=== PATIENT | female | born 1960 | race Caucasian/White ===

== ENCOUNTER 2022-04-30 11:34 | Emergency (ER) | payer OTHER, SELFPAY ==
[2022-04-30 11:40] VITALS: BP 122/62; PULSE 78; RESP 20; TEMP 36.3; O2SAT 98; BMI 21.1
--- NOTE | 2022-04-30 12:31 | ED_ITS ---
HPI - General Adult General Chief complaint: Abdominal Pain Stated complaint: Abdominal pain Time Seen by Provider: 04/30/22 11:36 History of Present Illness HPI narrative: 62-year-old woman accompanied by her with concern of being excessively gassy. She does also have some left upper abdominal pains that come and go and may coincide with a stabbing pain that sometimes feels numb in her mid back. This pain in the back especially is not a new pain has been going on for years intermittently. Does note a history of irritable bowel syndrome. Numerous allergies to food and medications. Sensitive to various foods/additives. Thinking back she feels that this most recent bout of dis-ease began about 3 weeks ago after ingesting a small piece of steak. She says she knows right away when she is going to react to it. Apparently can only tolerate grass fed beef. This also coincided with quitting smoking or least transitioning to a vape pen. She is historically tried spearmint flavor with no difficulty but this time she also thought she would try a flavored 1. Head marked increase in nausea and diarrheal stools which admittedly has settled down now. Moreso loose stools. Outside of the last few weeks would be going 3 to 5 times a day anyway. Quit most distressing as the degree of flatulence that she is having now. And there is discomfort in the left abdomen. Does have a history of diverticulitis, numerous bouts admittedly this feels nothing like it. There was the thought that perhaps she perforated somewhere along the way and is going to be in trouble soon. She has not had any melena or hematochezia. Again nauseated but not vomiting. No fever. No dysuria frequency urgency. Has not been vaccinated for COVID. is suspected to have had COVID early in the pandemic. He also has been experiencing bouts of nausea waves of nausea that seem out of the ordinary maybe for as long as 6 months. Again [place] also with waves of nausea intermittently. Later noting how her hands and feet will cramp up periodically; this does not sound to be a new thing. Past medical otherwise of number of abdominal surgeries. She has had cholecystectomy and thinks that has continued to have some difficulty after that with digestion. Has had diverticulitis numerous times. I believe 1 of these episodes prompted a partial colectomy. Has had regular screening colonoscopies. Related Data Home Medications Medication Instructions Recorded Confirmed No Known Home Medications 04/30/22 04/30/22 Allergies Allergy/AdvReac Type Severity Reaction Status Date / Time acetaminophen [From Tylenol] Allergy Verified 04/30/22 12:08 azithromycin Allergy Anaphylaxis Verified 04/30/22 12:08 cranberry Allergy Verified 04/30/22 12:08 diphenhydramine Allergy Rash Verified 04/30/22 12:08 [From Benadryl] fluconazole Allergy Rash Verified 04/30/22 12:08 ibuprofen Allergy Hives Verified 04/30/22 12:08 indomethacin [From Indocin] Allergy Verified 04/30/22 12:08 lactose Allergy Verified 04/30/22 12:08 latex Allergy Verified 04/30/22 11:46 levofloxacin [From Levaquin] Allergy Anaphylaxis Verified 04/30/22 11:46 melon Allergy Verified 04/30/22 12:08 niacin Allergy Anaphylaxis Verified 04/30/22 12:08 nickel Allergy Verified 04/30/22 12:08 peanut Allergy Verified 04/30/22 11:46 Quinolones Allergy angioedema Verified 04/30/22 12:08 tetracycline Allergy Anaphylaxis Verified 04/30/22 12:08 titanium Allergy Verified 04/30/22 11:46 watermelon Allergy Diarrhea Verified 04/30/22 12:08 soy copeland Allergy Uncoded 04/30/22 11:46 Review of Systems Status of ROS: Reports: 10 or more systems reviewed and unremarkable except as noted in History and below [facility] Social History Smoking Status: Former smoker Do you use any of these nicotine containing products: None Second hand tobacco smoke exposure: No How often do you have a drink containing alcohol: never AUDIT-C Alcohol total score: 0 Non-prescribed substance use: denies use Exam Narrative: Exam Narrative: Pleasant. Blunt in conversation style indirect. Does not appear to be any particular distress. Cranial nerves 2-12 intact. She is breathing easily. Lungs are with some diffuse congestion noted on expiration. No wheeze. Heart with regular rate and rhythm Abdomen is soft protuberant. Diminished bowel sounds but present. Postoperative scars are evident. Mid left abdomen probably most localized area of discomfort and to deep palpation though. No peritoneal signs are present. Notes a little sensation of numbness along the left mid paracervical musculature. Not tender. Extremities well perfused without edema. Skin warm and dry without rash. Const: Vital Signs, click to edit/add: Vital Signs - 24 hr 04/30/22 11:40 Temperature 97.4 F L Pulse Rate [Pulse Oximeter] 78 Respiratory Rate 20 Blood Pressure [Ri ght Upper Arm] 122/62 Pulse Oximetry 98 Oxygen Delivery Me thod Room Air Documenting provider has reviewed patient's vital signs: yes Course Vital Signs Vital signs: Initial Vital Signs Temperature 97.4 F L 04/30/22 11:40 Temperature Source Temporal Artery Scan 04/30/22 11:40 Pulse Rate 78 04/30/22 11:40 Respiratory Rate 20 04/30/22 11:40 Blood Pressure 122/62 04/30/22 11:40 Blood Pressure Mean 82 04/30/22 11:40 Pulse Oximetry 98 04/30/22 11:40 Oxygen Delivery Method 04/30/22 11:40 Vital Signs Temperature 97.4 F L 04/30/22 11:40 Pulse Rate 78 04/30/22 11:40 Respiratory Rate 20 04/30/22 11:40 Blood Pressure 122/62 04/30/22 11:40 Pulse Oximetry 98 04/30/22 11:40 Oxygen Delivery Method 04/30/22 11:40 Temperature 97.4 F L 04/30/22 11:40 Pulse Rate 78 04/30/22 11:40 Respiratory Rate 20 04/30/22 11:40 Blood Pressure 122/62 04/30/22 11:40 Pulse Oximetry 98 04/30/22 11:40 Oxygen Delivery Method 04/30/22 11:40 Medical Decision Making MDM Narrative Medical decision making narrative: I suspect prolonged symptoms after food intolerance as described or some other viral insult in someone prone to chronic bowel irritability. I think diverticulitis less likely given the absence of acute abdomen over this and duration of symptoms. We discussed emergent versus subacute as pertaining to the emergency department as well as primary care evaluation. In process of shared decision making decided screening labs All labs normal. Urinalysis only slightly concentrated. No indication of infection. It would not appear that further emergent imaging is necessary at this time. Still demonstrating a little discomfort in left mid abdomen. Transitions without apparent pain. Further conversation does reveal increased stress at home particularly with her . Last 3 months in particular have been rather difficult. I wonder if this may be adding to abdominal symptoms. See patient discharge plan Lab Data Lab results reviewed: Yes I reviewed the patient's lab results Labs: Lab Results 04/30/22 04/30/22 04/30/22 Range/Units 12:56 12:56 13:24 WBC 5.64 (4.50-11.00) K/uL RBC 4.58 (4.00-5.20) m/uL Hgb 13.0 (12.0-16.0) gm/dL Hct 40.1 (33.0-51.0) % MCV 88 (80-100) fL MCH 28 (26-34) pg MCHC 32 (32-36) gm/dL RDW Coeff of Helder 13.0 (11.5-15.5) % Plt Count 313 (140-440) K/uL Neut % (Auto) 54.2 (42.0-72.0) % Lymph % (Auto) 31.4 (20-44) % [place] % (Auto) 7.8 (0.0-11.0) % Eos % (Auto) 5.9 (0.0-7.0) % Baso % (Auto) 0.7 (0.0-3.0) % Neut # (Auto) 3.06 (1.7-7.0) K/uL Lymph # (Auto) 1.77 (0.90-2.90) K/uL [place] # (Auto) 0.40 (0.00-0.90) K/UL Eos # (Auto) 0.33 (0.00-0.50) K/uL Baso # (Auto) 0.04 (0.00-0.30) K/uL Sodium 138 (135-149) mmol/L Potassium 4.3 (3.6-5.1) mmol/L Chloride 104 (96-114) mmol/L Carbon Dioxide 31 (20-32) mmol/L BUN 16 (7-30) mg/dL Creatinine 0.6 (0.5-1.5) mg/dL Estimated Creat Clear 40.82 Estimated GFR 100 ml/min Glucose 99 (60-115) mg/dL Calcium 8.8 (8.4-10.6) mg/dL Magnesium 2.1 (1.5-2.6) mg/dL Total Bilirubin 0.3 (0.1-1.5) mg/dL Direct Bilirubin 0.2 (0.0-0.5) mg/dL AST 24 (12-35) U/L ALT 26 (4-35) U/L Alkaline Phosphatase 64 (40-150) U/L C-Reactive Protein 0.5 (0.5-1.0) mg/dL Total Protein 7.0 (6.0-8.3) g/dL Albumin 4.1 (3.3-5.0) g/dL Urine Color Yellow (Yellow) Urine Appearance Clear (Clear) Urine pH 6.5 (5.0-8.5) Ur Specific [place] 1.025 (1.000-1.030) Urine Protein Negative (Negative) Urine Glucose (UA) Negative (Negative) Urine Ketones Negative (Negative) Urine Blood Negative (Negative) Urine Nitrite Negative (Negative) Urine Bilirubin Negative (Negative) Urine Urobilinogen 0.2 (0.2-1.0) Ur Leukocyte Esterase Negative (Negative) Urine RBC 0-2 (0-2) Urine WBC 0-2 (0-5) Ur Squamous Epith Cells Few (None-Few) Urine Bacteria None (None) Discharge Plan Discharge Clinical Impression: Abdominal pain, Irritable bowel Patient Disposition: Home w/ Parent or Adult Condition: Stable Additional Instructions: It appears as if you are out of balance. I would continue to focus on hydration with simple water at this point. You might consider twice daily supplementation with probiotic of your choice and/or something like Damaso Bio-Gest digestive enzymes for up to 4 weeks to see if this makes a difference. I do think it is worth circling back around with Gastroenterology to discuss your difficulties since your cholecystectomy as well as general irritable bowel symptoms. Do begin keeping it diet diary of everything you ingest; all fluid intake including water, any supplements and then how you feel, your symptoms day-to-day. Can take this then to follow up with primary care provider with referral to acreage reporter. Congratulations on quitting smoking and alcohol cessation. As discussed, you might be uncovering other symptoms that may have not noticed before. At some point might consider consultation with complimentary/alternative/Naturopathic medicine especially as I think you have particular interest in this. Otherwise return for marked increase in persistent pain, repeated vomiting, associated fever. Prescriptions: No Action No Known Home Medications Follow Up/Referrals: Josias Moran MD [Primary Care Provider] - Stand Alone Forms: [address] Info Instructions
[2022-04-30] MEDS: ONDANSETRON ODT 4 MG TAB PO (12:59)
[2022-04-30 13:02] LABS: Basophils Absolute Auto 0.04 K/uL (0.00-0.30); Basophils Percent Auto 0.7 % (0.0-3.0); Eosinophils Absolute Auto 0.33 K/uL (0.00-0.50); Eosinophils Percent Auto 5.9 % (0.0-7.0); Hematocrit 40.1 % (33.0-51.0); Lymphocytes Absolute Auto 1.77 K/uL (0.90-2.90); Lymphocytes Percent Auto 31.4 % (20-44); Mean Corpuscular HGB Conc 32 gm/dL (32-36); Mean Corpuscular Hemoglobin 28 pg (26-34); Mean Corpuscular Volume 88 fL (80-100); Monocytes Percent Auto 7.8 % (0.0-11.0); Neutrophils Absolute Auto 3.06 K/uL (1.7-7.0); Neutrophils Percent Auto 54.2 % (42.0-72.0); Platelet Count* 313 K/uL (140-440); Red Blood Count 4.58 m/uL (4.00-5.20); White Blood Count* 5.64 K/uL (4.50-11.00)
[2022-04-30 13:05] LABS: Slide Review Reflex No
[2022-04-30 13:16] LABS: Albumin* 4.1 g/dL (3.3-5.0); Chloride* 104 mmol/L (96-114)
[2022-04-30 13:17] LABS: Potassium* 4.3 mmol/L (3.6-5.1); Sodium* 138 mmol/L (135-149)
[2022-04-30 13:19] LABS: Creatinine* 0.6 mg/dL (0.5-1.5); Est. Creatinine Clearance* 40.82; Estimated Glomerular Filt Rate 100 ml/min
[2022-04-30 13:20] LABS: Alanine Aminotransferase* 26 U/L (4-35); Alkaline Phosphatase* 64 U/L (40-150); Aspartate Amino Transferase* 24 U/L (12-35); Bilirubin Direct* 0.2 mg/dL (0.0-0.5); Bilirubin Total* 0.3 mg/dL (0.1-1.5); Blood Urea Nitrogen* 16 mg/dL (7-30); Calcium* 8.8 mg/dL (8.4-10.6); Carbon Dioxide* 31 mmol/L (20-32); Glucose* 99 mg/dL (60-115); Magnesium* 2.1 mg/dL (1.5-2.6)
[2022-04-30 13:22] LABS: C Reactive Protein* 0.5 mg/dL (0.5-1.0)
[2022-04-30 13:38] LABS: Appearance Urine Clear (Clear); Bilirubin Urine Negative (Negative); Blood Urine Negative (Negative); Color Urine Yellow (Yellow); Glucose Urine Negative (Negative); Ketones Urine Negative (Negative); Leukocyte Esterase Urine Negative (Negative); Nitrite Urine Negative (Negative); Protein Urine Negative (Negative); Specific Gravity Urine 1.025 (1.000-1.030); Urobilinogen Urine 0.2 (0.2-1.0); pH Urine 6.5 (5.0-8.5)
[2022-04-30 13:48] LABS: RBC Urine 0-2 (0-2); Squamous Epithelial Cell Urine Few (None-Few); WBC Urine 0-2 (0-5)
== END 2022-04-30 14:53 | disposition home or self-care (01) ==
PROVIDERS: Emergency Provider Family Medicine; PCP Family Medicine
DX: R10.9 Unspecified abdominal pain (principal); K58.9 Irritable bowel syndrome, unspecified
CPT/HCPCS: 36415; 80048; 80076; 81001; 83735; 85025; 86140; 99283; 99284; A9270

== ENCOUNTER 2023-10-23 12:20 | Emergency (ER) | payer MEDICARE, SELFPAY ==
[2023-10-23 12:25] VITALS: BP 99/51; PULSE 79; RESP 18; TEMP 36.9; O2SAT 97; BMI 21.3
--- NOTE | 2023-10-23 12:27 | ED.GENADULT ---
HPI - General Adult General Date Seen: 10/23/23 Chief complaint: Flank Pain Stated complaint: Poss kidney stone, poss prolapse colon Time Seen by Provider: 10/23/23 12:27 History of Present Illness HPI narrative: 63-year-old female with a past medical history of multiple episodes of diverticulitis resulting in eventual partial colectomy (res surgery done years ago at [facility]) also with a history of kidney stones (no stones for years because she had been able to suppress her kidney stones by using lemon drops. However she stopped taking lemon drops a couple of years ago on the advice of her dentist (presenting to the ER today with left flank and left lower quadrant abdominal pain. She has noted an intermittent bulge in her left groin it has been painful. It has been present for the past several months, since last spring. It tends to be more prominent when she is up and around and can be better when she lays down. Sometimes it is uncomfortable when she is laying down and she noticed that sometimes the bulge affects intimacy with her . In that setting she has also noted urinary urgency but no dysuria or hematuria that is been present for about a month or so. Since Tuesday she has had a new onset of pain that is in her left lower quadrant but also radiating up to her left flank. Pain since Tuesday is reminiscent of previous kidney stones. She has been nauseous but not vomiting since Tuesday. She has felt a bit unwell and achy but has not had any fever or chills. She had been constipated last week so gave herself an enema on but since then bowel movements have been normal. No diarrhea. No black or bloody stools. This morning she noticed that her urine was malodorous but not bloody. Her pain is now an 8-9/10 in her left flank so she came to the ER. She notes that the bulge in her left groin was present when she was walking into the ER today but is gone now that she is laying flat. Related Data Home Medications ?Medication ?Instructions ?Recorded ?Confirmed sumatriptan succinate 100 mg tablet 100 mg PO BID PRN migraine 05/27/23 10/23/23 Previous Rx's ?Medication ?Instructions ?Recorded cefdinir 300 mg capsule 300 mg PO BID 10 days #20 caps 10/23/23 oxycodone 5 mg capsule 5 mg PO TID PRN pain #10 caps 10/23/23 Allergies Allergy/AdvReac Type Severity Reaction Status Date / Time acetaminophen [From Tylenol] Allergy Verified 10/23/23 12:32 azithromycin Allergy Anaphylaxis Verified 10/23/23 12:32 cranberry Allergy Verified 10/23/23 12:32 diphenhydramine Allergy Rash Verified 10/23/23 12:32 [From Benadryl] fluconazole Allergy Rash Verified 10/23/23 12:32 ibuprofen Allergy Hives Verified 10/23/23 12:32 indomethacin [From Indocin] Allergy Verified 10/23/23 12:32 lactose Allergy Verified 10/23/23 12:32 latex Allergy Verified 10/23/23 12:32 levofloxacin [From Levaquin] Allergy Anaphylaxis Verified 10/23/23 12:32 melon Allergy Verified 10/23/23 12:32 niacin Allergy Anaphylaxis Verified 10/23/23 12:32 nickel Allergy Verified 10/23/23 12:32 peanut Allergy Verified 10/23/23 12:32 Quinolones Allergy angioedema Verified 10/23/23 12:32 tetracycline Allergy Anaphylaxis Verified 10/23/23 12:32 titanium Allergy Verified 10/23/23 12:32 watermelon Allergy Diarrhea Verified 10/23/23 12:32 soy copeland Allergy Uncoded 05/27/23 19:25 [facility] Social History Smoking Status: Former smoker Do you use any of these nicotine containing products: None Second hand tobacco smoke exposure: No How often do you have a drink containing alcohol: never AUDIT-C Alcohol total score: 0 Non-prescribed substance use: denies use Exam Narrative: Exam Narrative: Constitutional: Appears well-developed and well-nourished. Alert. Conversant but endorses 8-9/10 pain. Non toxic. HENT: Head: Atraumatic. Nose: Nose normal. Mouth/Throat: Oral mucosa is clear and moist. no trismus. Pharynx normal. Tonsils symmetric. No tonsillar enlargement, erythema, or exudate. Eyes: Conjunctivae normal. EOM normal. Pupils equal, round, and reactive to light. No scleral icterus. Neck: Normal range of motion. Neck supple. No tracheal deviation present. Cardiovascular: Normal rate, regular rhythm. No gallop. No friction rub. No murmur heard. Symmetric radial artery pulses Pulmonary/Chest: Effort normal. No stridor. No respiratory distress. No wheezes. No rales. No rhonchi . No tenderness. Abdominal: Soft. Bowel sounds normal. No distension. No mass. Left lower quadrant, left upper quadrant, and left CVA tenderness. No rebound. No guarding. When I examine her left groin and left inguinal region I cannot appreciate any mass or hernia. No redness of the skin there. No ecchymosis. Normal femoral pulse. Musculoskeletal: RUE: Normal range of motion. No tenderness. No deformity LUE: Normal range of motion. No tenderness. No deformity RLE: Normal range of motion. No edema. No tenderness. No deformity LLE: Normal range of motion. No edema. No tenderness. No deformity Lymph: No inguinal adenopathy. Neurological: Alert and oriented to person, place, and time. Normal strength. CN II-VII intact. No sensory deficit. GCS eye subscore is 4. GCS verbal subscore is 5. GCS motor subscore is 6. Normal coordination Skin: Skin is warm and dry. No rash noted. No pallor. Normal capillary refill. Psychiatric: Normal mood. Normal affect. Const: Vital Signs, click to edit/add: Vital Signs - 24 hr 10/23/23 12:25 Temperature 98.4 F Pulse Rate [Pulse Oximeter] 79 Respiratory Rate 18 Blood Pressure [Ri ght Upper Arm] 99/51 L Pulse Oximetry 97 Oxygen Delivery Me thod Room Air Course Vital Signs Vital signs: Initial Vital Signs Temperature 98.4 F 10/23/23 12:25 Temperature Source Temporal Artery Scan 10/23/23 12:25 Pulse Rate 79 10/23/23 12:25 Respiratory Rate 18 10/23/23 12:25 Blood Pressure 99/51 L 10/23/23 12:25 Blood Pressure Mean 67 L 10/23/23 12:25 Blood Pressure Position Sitting 10/23/23 12:25 Pulse Oximetry 97 10/23/23 12:25 Oxygen Delivery Method Room Air 10/23/23 12:25 Vital Signs Temperature 98.4 F 10/23/23 12:25 Pulse Rate 79 10/23/23 12:25 Respiratory Rate 18 10/23/23 12:25 Blood Pressure 99/51 L 10/23/23 12:25 Pulse Oximetry 97 10/23/23 12:25 Oxygen Delivery Method Room Air 10/23/23 12:25 Temperature 98.4 F 10/23/23 12:25 Pulse Rate 79 10/23/23 12:25 Respiratory Rate 18 10/23/23 12:25 Blood Pressure 99/51 L 10/23/23 12:25 Pulse Oximetry 97 10/23/23 12:25 Oxygen Delivery Method Room Air 10/23/23 12:25 Medications Administered Medications: Generic Name Dose Route Start Last Admin Trade Name Freq PRN Reason Stop Dose Admin Hydromorphone HCl 0.5 mg 10/23/23 13:04 10/23/23 13:22 Hydromorphone 0.5 Mg/0.5 Ml Inj IVP 0.5 mg Q1H PRN Administration Pain Discontinued Medications Generic Name Dose Route Start Last Admin Trade Name Freq PRN Reason Stop Dose Admin Ceftriaxone Sodium 1 gm/ 100 mls @ 200 mls/hr 10/23/23 13:33 10/23/23 14:25 Sodium Chloride IVPB 10/23/23 13:34 Infused ONCE ONE Infusion Ondansetron HCl 4 mg 10/23/23 13:04 10/23/23 13:22 Ondansetron 2 Mg/Ml Inj IVP 10/23/23 13:05 4 mg ONCE ONE Administration Medical Decision Making MDM Narrative Medical decision making narrative: This patient presents with left lower quadrant, left-sided abdominal, and left flank pain. She has had a intermittent painful lump in her left groin for the past several months. By history I am suspicious of this probably represents a sliding inguinal hernia (or possibly a sliding incisional hernia since she has had a previous abdominal incision in that area) on my initial exam here in the ER she does not have any palpable lump or hernia present. She says it was present when she was upright walking into the ER but is gone away now that she is supine. CT imaging was obtained shows no evidence for any active hernia. Also no evidence for obstruction, incarceration, or other abnormality. No other obvious vascular abnormality on her noncontrast CT such as an iliac artery aneurysm. I think she would be stable for outpatient follow-up to consider surgery intervention for repair of what I believe is sliding left inguinal hernia. Precautions for return to the ER reviewed. Differential Diagnosis considered includes: Ureterolithiasis, UTI, pyelonephritis, AAA, colitis, diverticulitis, volvulus, appendicitis, among others. No evidence for any obstructing stone on CT. Urinalysis is abnormal with pyuria, bacteriuria, positive nitrite, also hematuria. Likely indicates UTI and with symptoms probably evolving left pyelonephritis. She is afebrile. Blood pressure and vitals are stable. White count is 12. Otherwise she does not seem to display sepsis physiology. Treated with Rocephin 1 g IV here in the ER. The patient's pain is controlled in ED. The patient is hemodynamically stable in ED. I think the patient is safe for discharge. The plan is discharge to home with recheck by primary care physician .They will return to the ED right away if symptoms worsen (e.g Return immediately for fevers greater than 102, increasing pain, other new symptoms develop). Pyelonephritis precautions for home. Prescriptions for pain control, , antibiotics (Rocephin given in ER, cefdinir 300 mg b.i.d. for 10 days) to treat UTI. Opiate precautions reviewed. Lab Data Labs: Lab Results 10/23/23 10/23/23 10/23/23 Range/Units 13:08 13:58 Unknown WBC 12.22 H (4.50-11.00) K/uL RBC 4.62 (4.00-5.20) m/uL Hgb 13.4 (12.0-16.0) gm/dL Hct 41.0 (33.0-51.0) % MCV 89 (80-100) fL MCH 29 (26-34) pg MCHC 33 (32-36) gm/dL RDW Coeff of Helder 13.6 (11.5-15.5) % Plt Count 284 (140-440) K/uL Neut % (Auto) 76.8 H (42.0-72.0) % Lymph % (Auto) 15.2 L (20-44) % [place] % (Auto) 7.0 (0.0-11.0) % Eos % (Auto) 0.7 (0.0-7.0) % Baso % (Auto) 0.2 (0.0-3.0) % Neut # (Auto) 9.40 H (1.7-7.0) K/uL Lymph # (Auto) 1.90 (0.90-2.90) K/uL [place] # (Auto) 0.90 (0.00-0.90) K/UL Eos # (Auto) 0.10 (0.00-0.50) K/uL Baso # (Auto) 0.00 (0.00-0.30) K/uL Abs Immat Gran (auto) 0.00 (0.00-0.30) K/uL Imm/Tot Granulo (auto) 0.1 % Sodium 137 (135-149) mmol/L Potassium 3.8 (3.6-5.1) mmol/L Chloride 104 (96-114) mmol/L Carbon Dioxide 27 (20-32) mmol/L Anion Gap 6 L (7-15) mEq/L BUN 11 (7-30) mg/dL Creatinine 0.6 (0.5-1.5) mg/dL Estimated Creat Clear 40.29 Estimated GFR 100 ml/min Glucose 108 (60-115) mg/dL Calcium 8.3 L (8.4-10.6) mg/dL Total Bilirubin 0.5 (0.1-1.5) mg/dL AST 19 (12-35) U/L ALT 11 (4-35) U/L Alkaline Phosphatase 72 (40-150) U/L Total Protein 6.5 (6.0-8.3) g/dL Albumin 3.9 (3.3-5.0) g/dL Lipase 128 (23-300) U/L Urine Color Dark yellow (Yellow) Urine Appearance Cloudy A (Clear) Urine pH 7.0 (5.0-8.5) Ur Specific [place] 1.020 (1.000-1.030) Urine Protein 2+ A (Negative) Urine Glucose (UA) Negative (Negative) Urine Ketones Negative (Negative) Urine Blood 2+ A (Negative) Urine Nitrite Positive A (Negative) Urine Bilirubin Negative (Negative) Urine Urobilinogen 0.2 (0.2-1.0) Ur Leukocyte Esterase Trace A (Negative) Urine RBC 25-50 A (0-2) Urine WBC 50-100 A (0-5) Ur Squamous Epith Cells Few (None-Few) Urine Bacteria Many A (None) Imaging Data CT scan - abdomen: Attestation: I have reviewed the pertinent imaging results. Radiologist's impression: IMPRESSION: : No current kidney or ureteral stones and no hydronephrosis. No specific findings to explain flank pain. Discharge Plan Discharge Clinical Impression: Acute pyelonephritis, Inguinal hernia Patient Disposition: Home, Self-Care Condition: Stable Instructions: Kidney Infection (ED) Additional Instructions: As we discussed, you will need more antibiotics to treat your kidney infection. Take urine next dose of antibiotic tomorrow morning and take it twice a day for 10 days. We will contact you by phone if we need to change her antibiotics. If you have worsening pain, high fever, uncontrolled nausea vomiting, weakness, or any problems, please come back to ER right away to be rechecked. For your goal inguinal hernia (groin pain) please recheck with your regular doctor within the next 1-2 weeks. He will likely will need to be evaluated by a surgeon to have the bulge surgically repaired. If the bulge becomes more painful, or if it does not go flat when you lay down, or causes abdominal bloating and pain or vomiting, or if you have any other problems come back to the ER right away to be rechecked. Use caution with a prescription pain killer (oxycodone) because it causes dizziness, drowsiness, constipation, and can be addictive. Prescriptions: New oxycodone 5 mg capsule 5 mg PO TID PRN (Reason: pain) Qty: 10 0RF cefdinir 300 mg capsule 300 mg PO BID 10 Days Qty: 20 0RF No Action sumatriptan succinate 100 mg tablet 100 mg PO BID PRN (Reason: migraine) Follow Up/Referrals: Josias Moran MD [Primary Care Provider] - Stand Alone Forms: [email or web address] Info Instructions
--- NOTE | 2023-10-23 12:28 | CRLHL7_ITS ---
For Patients: As a result of the Century Cures Act, medical imaging exams and procedure reports are released immediately into your electronic medical record. You may view this report before your referring provider. If you have questions, please contact your health care provider. INDICATION: Flank pain, kidney stone suspected. TECHNIQUE: CT abdomen and pelvis without contrast, stone protocol. COMPARISON: None. FINDINGS: Kidney/ureters: Kidneys are normal in caliber. No kidney or ureteral stones and no hydronephrosis. No sign of perinephric inflammation. Ureters are normal in caliber. Liver/gallbladder/bile ducts: The liver is normal in size, shape and attenuation. Gallbladder is absent. No biliary dilatation. Spleen/pancreas/adrenal glands: The spleen, adrenal glands and pancreas are within normal limits. GI tract: No obstruction. Partial colonic resection. Appendix not visualized. Abdominal wall/omentum/peritoneum: No free air or significant free fluid. No mass or inflammation. Lymph nodes: No lymphadenopathy. Vasculature: Mild aortoiliac atherosclerosis. Pelvis: Hysterectomy. Lower chest: Bilateral breast implants. Bones: No acute or suspicious osseous lesions. IMPRESSION: : No current kidney or ureteral stones and no hydronephrosis. No specific findings to explain flank pain. Please note that all CT scans at this facility use dose modulation, iterative reconstruction, and/or weight-based dosing when appropriate to reduce radiation dose to as low as reasonably achievable. Dictated by Juana Ahmadi MD @ 10/23/2023 1:47:29 PM (Electronically Signed)
[2023-10-23 12:50] LABS: Appearance Urine Cloudy (Clear); Bilirubin Urine Negative (Negative); Blood Urine 2+ (Negative); Color Urine Dark yellow (Yellow); Glucose Urine Negative (Negative); Ketones Urine Negative (Negative); Leukocyte Esterase Urine Trace (Negative); Nitrite Urine Positive (Negative); Protein Urine 2+ (Negative); Urobilinogen Urine 0.2 (0.2-1.0)
[2023-10-23 13:04] LABS: Bacteria Urine Many; RBC Urine 25-50 (0-2); Squamous Epithelial Cell Urine Few (None-Few); WBC Urine 50-100 (0-5)
[2023-10-23 13:21] LABS: Basophils Percent Auto 0.2 % (0.0-3.0); Eosinophils Percent Auto 0.7 % (0.0-7.0); Hemoglobin* 13.4 gm/dL (12.0-16.0); Immature Granulocytes Pct Auto 0.1 %; Lymphocytes Percent Auto 15.2 % (20-44); Mean Corpuscular HGB Conc 33 gm/dL (32-36); Mean Corpuscular Hemoglobin 29 pg (26-34); Mean Corpuscular Volume 89 fL (80-100); Neutrophils Percent Auto 76.8 % (42.0-72.0); Platelet Count* 284 K/uL (140-440); RDW Coefficient of Variation % 13.6 % (11.5-15.5); Red Blood Count 4.62 m/uL (4.00-5.20); White Blood Count* 12.22 K/uL (4.50-11.00)
[2023-10-23] MEDS: HYDROmorphone 0.5 mg/0.5 ml inj IVP (13:22)
[2023-10-23] MEDS: ONDANSETRON 2 MG/ML inj 4 MG IVP (13:22)
[2023-10-23 13:29] LABS: Slide Review Reflex No
[2023-10-23] MEDS: cefTRIAXone 1 GM in 0.9 % SODIUM CHLORIDE Mini-bag 100 ML IVPB (13:40)
[2023-10-23 14:00] VITALS: BP 95/37; PULSE 70; RESP 18; O2SAT 95
[2023-10-23 14:21] LABS: Albumin* 3.9 g/dL (3.3-5.0); Chloride* 104 mmol/L (96-114); Potassium* 3.8 mmol/L (3.6-5.1); Sodium* 137 mmol/L (135-149)
[2023-10-23 14:23] LABS: Bilirubin Total* 0.5 mg/dL (0.1-1.5); Creatinine* 0.6 mg/dL (0.5-1.5); Est. Creatinine Clearance* 40.29; Estimated Glomerular Filt Rate 100 ml/min
[2023-10-23 14:24] LABS: Alanine Aminotransferase* 11 U/L (4-35); Alkaline Phosphatase* 72 U/L (40-150); Anion Gap 6 mEq/L (7-15); Aspartate Amino Transferase* 19 U/L (12-35); Blood Urea Nitrogen* 11 mg/dL (7-30); Calcium* 8.3 mg/dL (8.4-10.6); Carbon Dioxide* 27 mmol/L (20-32); Glucose* 108 mg/dL (60-115); Lipase* 128 U/L (23-300); Total Protein* 6.5 g/dL (6.0-8.3)
[2023-10-23 15:10] VITALS: BP 94/52; PULSE 69; RESP 18; O2SAT 92
[2023-10-23 15:42] VITALS: BP 106/53; PULSE 62; RESP 18; O2SAT 98
== END 2023-10-23 15:38 | disposition home or self-care (01) ==
PROVIDERS: Emergency Provider Emergency Medicine; PCP Family Medicine
DX: N10 Acute pyelonephritis (principal); K40.90 Unilateral inguinal hernia, without obstruction or gangrene, not specified as recurrent
CPT/HCPCS: 36415; 74176; 80053; 81001; 83690; 85025; 87086; 87186; 96365; 96375; 99284; J0696; J1170; J2405

== ENCOUNTER 2023-11-04 12:00 | Outpatient (CLI) | payer MEDICARE, SELFPAY | END 2023-11-04 12:01 | disposition home or self-care (01) | LOC: NFLDREF 11-08 23:07 | PROVIDERS: PCP Family Medicine; Referring Provider Family Medicine; Visit Provider Family Medicine | DX: R19.7 Diarrhea, unspecified (principal) | CPT/HCPCS: 87493 ==

== ENCOUNTER 2024-02-09 07:54 | Outpatient (CLI) | payer MEDICARE, SELFPAY ==
--- NOTE | 2024-02-09 08:15 | CRLHL7_ITS ---
For Patients: As a result of the Century Cures Act, medical imaging exams and procedure reports are released immediately into your electronic medical record. You may view this report before your referring provider. If you have questions, please contact your health care provider. Technique: Double-contrast esophagram performed after the uneventful administration of effervescent crystals and thick barium followed by thin barium. Fluoroscopy time 54 seconds. Indication: Dysphagia HX OF HIATAL AND Inguinal HERNIA Comparison: CT abdomen and pelvis 10/23/2023 Findings: Esophagus: A small sliding hiatal hernia is present. Decreased esophageal motility noted with delayed clearance of contrast from the esophagus. No mucosal irregularity or stricture. No ulcer. Normal swallowing mechanism. Gastroesophageal reflux: Spontaneous reflux noted. Impression: Delayed esophageal transit, spontaneous reflux and small sliding hiatal hernia. Dictated by Cade Mccollum MD @ 02/09/2024 10:12:20 AM (Electronically Signed)
== END 2024-02-09 07:55 | disposition home or self-care (01) ==
LOC: RAD 07:56
PROVIDERS: PCP Family Medicine; Visit Provider Surgery
DX: R13.10 Dysphagia, unspecified (principal); K21.9 Gastro-esophageal reflux disease without esophagitis; K44.9 Diaphragmatic hernia without obstruction or gangrene
CPT/HCPCS: 74221

== ENCOUNTER 2025-02-20 09:44 | Outpatient (CLI) | payer MEDICARE, SELFPAY ==
[2025-02-20 10:33] LABS: PCR FLU A POSITIVE PCR FLU A (Negative); PCR FLU B Negative PCR FLU B (Negative); SARS PCR* Negative SARS-CoV-2 (Negative)
== END 2025-02-20 09:45 | disposition home or self-care (01) ==
LOC: FRMREF 09:44
PROVIDERS: PCP Family Medicine
DX: R50.9 Fever, unspecified (principal)
CPT/HCPCS: 87636